=== PATIENT | male | born 2000 | race Caucasian/White ===

== ENCOUNTER 2021-10-14 18:45 | Emergency (ER) | payer OTHER ==
[2021-10-14] MEDS ORDERED: SODIUM CHLORIDE 0.9% 1,000 ML IV STA (19:11)
[2021-10-14 19:35] LABS: BASOPHILS % (AUTO) 0.3 %; EOSINOPHILS % (AUTO) 0.1 %; HCT - HEMATOCRIT 43.1 % (42.0-52.0); HGB - HEMOGLOBIN 15.7 g/dL (14.0-18.0); LYMPHOCYTES # (AUTO) 1.4 10^3/uL (1.5-3.5); LYMPHOCYTES % (AUTO) 19.9 %; MEAN CORPUSCULAR HEMOGLOBIN 30.5 pg (27.0-31.0); MEAN CORPUSCULAR HGB CONC 36.4 g/dL (32.0-36.0); MEAN CORPUSCULAR VOLUME 83.9 fL (80.0-94.0); MEAN PLATELET VOLUME 8.6 fL (7.4-11.4); MONOCYTES # (AUTO) 0.4 10^3/uL (0.0-1.0); MONOCYTES % (AUTO) 5.6 %; NEUTROPHILS # (AUTO) 5.2 10^3/uL (1.5-6.6); NEUTROPHILS % (AUTO) 73.8 %; PLT - PLATELET COUNT 293 10^3/uL (130-450); RED BLOOD COUNT 5.14 10^6/uL (4.70-6.10); RED CELL DISTRIBUTION WIDTH 11.9 % (12.0-15.0); WHITE BLOOD COUNT 7.1 x10^3/uL (4.8-10.8)
--- NOTE | 2021-10-14 19:35 | ED Physician Documentation ---
History of Present Illness - Stated complaint Stated Complaint: DIZZINESS,LOW HR - Chief complaint Chief Complaint: Neuro - Additonal information Additional information: 21-year-old male presents emergency department for evaluation of nausea, feeling fatigued and having some chest pain and discomfort. Reports symptoms began yesterday evening. He had abdominal cramping and thought that he was going to use the restroom or have watery bowel movement but he did not. When he was exiting the restroom he felt nauseated and checked his heart rate which was 54 which she reports is being low for him. No syncope. Since then he has had some vague chest discomfort. Denies that it is pressure-like. Does not radiate. No recent fevers. [place]. Reports COVID-19 vaccine is up-to-date. Denies tobacco or alcohol use. Takes no prescribed medications. Review of Systems Constitutional: reports: Fatigue. denies: Fever Eyes: reports: Reviewed and negative Throat: reports: Reviewed and negative Cardiac: reports: Chest pain / pressure. denies: Palpitations, Pedal edema, Calf pain Respiratory: denies: Dyspnea, Cough GI: reports: Abdominal Pain, Nausea. denies: Constipation, Diarrhea, Hematemesis : reports: Reviewed and negative Skin: reports: Reviewed and negative Musculoskeletal: reports: Reviewed and negative PD PAST MEDICAL HISTORY - Present Medications Home Medications: Ambulatory Orders Medication Instructions Recorded Confirmed No Known Home Medications 10/14/21 10/14/21 - Allergies Allergies/Adverse Reactions: Allergies Allergy/AdvReac Type Severity Reaction Status Date / Time gluten Allergy Unknown Verified 10/14/21 18:54 PD ED PE NORMAL - General General: Alert and oriented X 3, No acute distress - HEENT HEENT: PERRL - Neck Neck: Supple, no meningeal sign, No adenopathy - Cardiac Cardiac: RRR, No murmur, No gallop - Respiratory Respiratory: No respiratory distress, Clear bilaterally - Abdomen Abdomen: Normal bowel sounds, Soft, Non tender - Derm Derm: Normal color, Warm and dry, No rash - Extremities Extremities: No deformity, No tenderness to palpate, Normal ROM s pain Results - Vitals Vitals: Vital Signs - 24 hr 10/14/21 10/14/21 18:55 19:33 Temperature 37.2 C Heart Rate 93 80 Respiratory 19 20 Rate Blood Pressure 131/94 H 128/84 H O2 Saturation 99 100 Oxygen O2 Source Room air - EKG (time done) 1853 Rate: Rate (enter#) (84) Rhythm: NSR [place]: Normal Intervals: Normal OR QRS: Normal Ischemia: Normal ST segments Compare to prior EKG: Old EKG unavailable Computer interpretation: Agree with computer - Labs Labs: Laboratory Tests 10/14/21 10/14/21 10/14/21 19:27 19:27 19:27 WBC 7.1 RBC 5.14 Hgb 15.7 Hct 43.1 MCV 83.9 MCH 30.5 MCHC 36.4 H RDW 11.9 L Plt Count 293 MPV 8.6 Neut # (Auto) 5.2 Lymph # (Auto) 1.4 L [place] # (Auto) 0.4 Eos # (Auto) 0.0 Baso # (Auto) 0.0 Absolute Nucleated RBC 0.00 Nucleated RBC % 0.0 Sodium 137 Potassium 3.6 Chloride 101 Carbon Dioxide 26 Anion Gap 10.0 BUN 10 Creatinine 0.9 Estimated GFR (MDRD) 105 Glucose 97 Calcium 9.1 Total Bilirubin 1.5 H AST 17 ALT 28 Alkaline Phosphatase 62 Troponin I High Sens < 2.3 L Total Protein 8.0 Albumin 4.5 Globulin 3.5 Albumin/Globulin Ratio 1.3 Lipase 26 - Rads (name of study) cxr Radiology: Final report received (no acute cardiopulmonary process) PD MEDICAL DECISION MAKING - ED course Complexity details: reviewed results, re-evaluated patient, considered differential, d/w patient ED course: 21-year-old male presents emergency department for evaluation of 24 hours of nausea, abdominal cramping feeling lightheaded and concerned that he had a low heart rate. No syncope. On exam no abdominal tenderness was elicited. Cardiopulmonary auscultation was unremarkable. No hypoxia. He is PERC negative. EKG is nonischemic. High- sensitivity troponin negative. Given lack of abdominal tenderness and unremarkable screening labs including a troponin we did defer advanced CT imaging. Patient was given Zofran and IV fluids here in the emergency department with marked resolution of symptoms. We will send the patient home with a prepack for Zofran. Emergent worrisome return precautions otherwise discussed. Departure - Departure Disposition: Home, Self Care Clinical Impression: Nausea, Light-headed feeling Condition: Stable Record reviewed to determine appropriate education?: Yes Comments: Brent pope were seen today in the emergency department for nausea, chest discomfort and feeling lightheaded. Your symptoms began last night. At that time you had some abdominal cramping and I suspect that you likely have a mild virus that may have caused the cramping and nausea. However your screening labs today are essentially normal. Your chest x-ray and EKG are normal. You are not showing signs of having a heart attack, a stroke or a blood clot in your lungs. We have prescribed you some Zofran to take home with you. This is a tablet that you can take under your tongue every 6-8 hours. I recommend frequent sips of small liquids. In general with what I think is a mild viral illness I would expect you to be feeling better over the next 48 to 72 hours. If at any point you have fevers higher than 102, severe abdominal pain, uncontrolled vomiting or any fainting episodes or severe shortness of breath and please return immediately to the ER for second evaluation.
[2021-10-14 19:38] VITALS: BP 128/84
[2021-10-14 19:46] LABS: ALBUMIN 4.5 g/dL (3.2-5.5); ALBUMIN/GLOBULIN RATIO 1.3 (1.0-2.2); BILIRUBIN,TOTAL 1.5 mg/dL (0.2-1.0); CALCIUM 9.1 mg/dL (8.5-10.3); CREATININE 0.9 mg/dL (0.6-1.2); POTASSIUM 3.6 mmol/L (3.5-5.0)
[2021-10-14] MEDS ORDERED: ONDANSETRON 4 MG/2 ML VIAL IVP STA (19:51)
[2021-10-14] MEDS ORDERED: ONDANSETRON ODT 4 MG Prepack 2 TL PRN (20:13)
--- NOTE | 2021-10-14 20:17 | XRAY Report ---
PROCEDURE: Chest 1 View X-Ray INDICATIONS: Chest Pain TECHNIQUE: One view of the chest was acquired. COMPARISON: None. FINDINGS: Surgical changes and devices: None. Lungs and pleura: No pleural effusions or pneumothorax. Lungs are clear. Mediastinum: Mediastinal contours appear normal. Heart size is normal. Bones and chest wall: No suspicious bony lesions. Overlying soft tissues appear unremarkable. IMPRESSION: No acute cardiopulmonary abnormality. Reviewed by: Ethan Solano MD on 10/14/2021 8:16 PM [facility] Approved by: Ethan Solano MD on 10/14/2021 8:16 PM [facility] Station ID: [id number]
== END 2021-10-14 20:27 | disposition home or self-care (01) ==
LOC: ED 18:45
DX: R42 Dizziness and giddiness (principal); R11.0 Nausea
CPT/HCPCS: 36415; 80053; 83690; 84484; 85025; 93005; 96374; 99283

== ENCOUNTER 2021-11-25 14:19 | Outpatient (CLI) | payer OTHER ==
[2021-11-25 15:19] VITALS: BP 126/73
--- NOTE | 2021-11-25 15:19 | SLEEP CARE CONSULTATION ---
Information from patient questionnaire entered by Romel Delaney MA. I have reviewed and concur with the information entered by Romel Delaney MA. This document represents the service I personally performed and the decisions made by me, Fariha Hall ARNP. History of Present Illness Service Date and Time: 11/25/2021 1419 Reason for Visit: New patient Accompanied by: Father Chief Complaint: reports: Unrefreshed sleep, Excessive daytime sleepiness, Observed pauses in breathing, Fatigue, Frequent awakenings at night Date of Onset: LAST 2 YEARS Usual bedtime: 12 MIDNIGHT TO 4 AM Time it takes to fall asleep: OVER 2 HOURS Snores at night: No Observed to quit breathing while asleep: No Number of times waking at night: 3 -5 TIMES Reasons for waking at night: reports: Choking, Gasping for air, Pain Toss, Turn, or Twitch while sleeping: Yes Recalls having dreams: Yes Usually gets out of bed at: 1030 - 200 Feels refreshed in the morning: No Morning headache: Yes (5 days weekly; last 30 mins or so) Sleepy or fatigued during the day: Yes Ever fallen asleep while driving: No Takes day naps: No Dreams during day naps: No Prior sleep studies: No Year and Where: [place] Type of Sleep Study: Home sleep study Additional HPI information: I had the pleasure of seeing MARYSOL MATTHEW today regarding the possibility of him having a sleep disorder. His current complaints are unrefreshed sleep, observed pauses in breathing, excessive daytime sleepiness, fatigue and frequent night awakenings. He was living in [place] and having 3-5 times he would wake up feeling short of breath. Since moving to [place] these incidences are about 1-3 times a night. He states he has not been told that he snores and his father who accompanied him voiced agreement. He states he did complete 2 home studies in [place]. The first one there was a problem with so he repeated it. He states after the second test he was told to avoid sleeping on his back and to only sleep on his side. He was not started on any other therapy at that time. He feels his nightly gasping for air has worsened since his last sleep study. He has gained about 24 pounds over the last 5 years. He does have a history of asthma that he states is well controlled. He rarely has to use his rescue albuterol inhaler and he has had no exacerbations in at least 10 years. - Parasomnia Symptoms Ever been unable to move upon waking from sleep: No Walks in sleep: No Talks in sleep: No Ever acted out dreams in sleep: No Ever felt weak in the knees when startled or emotional: No Bothered by creepy, crawly, restless sensations in legs: Yes (when laying down, tingling sensations) Problems with memory or concentration: Yes (will lose train of thought; hard to remember simple things) Subjective Initial [place] Sleepiness Scale score: 7 (11/2021) Past Medical History Past Medical History: reports: Anxiety, Asthma, Depression Social History The patient's occupation is a [employer]. Patient is Single and lives in . Have you smoked in the past 12 months: No Alcohol use: No Caffeine use: No Family History Family history of sleep disordered breathing: Yes Family Hx Sleep Apnea: Mother: Sleep apnea - Treated, Father: Snoring Allergies and Home Medications Drug allergies reviewed: Yes (NKDA) Home medication list reviewed: Yes Allergy and home medication list: Allergies gluten Allergy (Verified 10/14/21 18:54) Unknown Medications: Omeprazole Fluoxetine, just started yesterday Zyrtec Albuterol inhaler, prn Review of Systems Weight gain over past 5 years: 24 lb Cardiovascular: denies: high blood pressure Respiratory: reports: shortness of breath Gastrointestinal: reports: heartburn, nausea, abdominal pain Neurological: reports: headaches Psychiatric: reports: anxiety, depression Ear/Nose/Throat: reports: nasal congestion, sinus problems, wisdom teeth removed. denies: tonsillectomy Endocrine: reports: sluggishness Musculoskeletal: reports: joint pain Physical Exam Vital signs obtained and entered by: Jared DELANEY CMA AAMA Blood Pressure: 126/73 (RIGHT, PULSE 72, RESP 18, ) Cuff size: wrist Heart Rate: 72 O2 Saturation: 96 (PAPER) Height: 5 ft 8 in Weight: 204 lb (WITH CLOTHES) Body Mass Index: 31.0 BMI Classification: Obese Neck circumference: 17 (INCHES) Mouth and throat: narrow oropharynx Soft palate: long Hard palate: normal Uvula: normal Uvula visualization: 25% Mallampati Class III Tongue: enlarged in size with teeth lemus on lateral edges Tonsils: 2+ Neck: normal w/o lymphadenopathy or thyromegaly Heart: regular rate and rhythm Lungs: clear bilaterally Impression and Plan 1. Suspected Obstructive Sleep Apnea-Hypopnea Syndrome, as suggested by a history of observed cessation of breath while asleep, gasping or choking in sleep, morning headache, frequent awakening during the night, unrefreshed sleep, cognitive impairment, and excessive daytime sleepiness. Narrow oropharynx and obesity are common predisposing factors for obstructive sleep apnea-hypopnea syndrome. I recommend proceeding to polysomnography to confirm the diagnosis and to assess severity. If the patient has significant sleep disordered breathing, a manual CPAP titration study will also be performed to find the optimal treatment pressure. I informed the patient of what the sleep studies involve and after some discussion, obtained agreement to proceed. The pathophysiology of obstructive sleep apnea-hypopnea syndrome was discussed with the patient and health risks of cardiovascular and cerebrovascular disease if not treated. Risks of drowsy driving discussed in detail and patient advised to avoid long distance driving and to black puller at the first sign of drowsiness. Patient agreed to plan. * Schedule polysomnography. * Attempt to lose weight. * Review instructions provided by trained office staff on how to prepare for the sleep study. * Return for follow-up after sleep study completed. Counseling Topics: Weight loss health impact Visit Type: In Office Other Participants: Other (Father) Time Spent with Patient (minutes): 40 Provider Statement: I spent 100% of the Face to Face Visit with the patient with greater than 50% spent counseling the patient and coordination of care.
== END 2021-11-25 14:20 | disposition home or self-care (01) ==
LOC: SC 14:19
PROVIDERS: ATTEND Nurse Practitioner Family
DX: G47.10 Hypersomnia, unspecified (principal); R06.81 Apnea, not elsewhere classified; G47.8 Other sleep disorders; R51.9 Headache, unspecified; R41.9 Unspecified symptoms and signs involving cognitive functions and awareness; E66.9 Obesity, unspecified; Z68.31 Body mass index [BMI] 31.0-31.9, adult
CPT/HCPCS: 99203; 99212

== ENCOUNTER 2022-01-19 10:26 | Outpatient (CLI) | payer OTHER ==
--- NOTE | 2022-01-19 10:53 | SLEEP CARE CONSULTATION ---
Information from patient questionnaire entered by Romel Christine MA. I have reviewed and concur with the information entered by Romel Christine MA. This document represents the service I personally performed and the decisions made by , Fariha Hall ARNP. History of Present Illness Service Date and Time: 01/19/2022 1026 Accompanied by: Father Initial [place] Sleepiness Scale score: 7 (11/2021) Current [place] Sleepiness Scale score: 7 (01/19/2022) Additional HPI information: MARYSOL MATTHEW returns for follow up and results of the recently performed home sleep study. I explained the pathophysiology behind obstructive sleep apnea. We then spent quite a bit of time discussing different treatment options. For mild obstructive sleep apnea, surgery and oral appliance are alternatives to nasal CPAP therapy but in moderate or severe cases, nasal CPAP is the most effective and reliable treatment. I reviewed the impact of weight changes on sleep apnea and strongly recommended losing weight. I explained how CPAP machine works and what to expect when using the machine. Patient counseled not drink alcohol less than 4 hours before bedtime as it can increase snoring and apnea. Patient was cautioned about risks of drowsy driving until sleepiness symptoms resolve. Sleep Study - Results Type of Sleep Study: Home sleep study (F/U HOME STUDY, 12/31/2021 [facility], POS) Prior sleep studies: No Year and Where: [place] Polysomnography/Home Sleep Study results: Physician Impression: The quality of the study is good. The length of the study is not optimal (< 240 minutes). Please also see the tabulated and graphic data. 1. Obstructive Sleep Apnea-Hypopnea (ICD-10 G47.33), mild, with an AHI of 14.7/hr and celina SaO2 of 88%. During the study, the patient had 19 apneas (19 obstructive, 0 central, 0 mixed) and 17 hypopneas. The longest episode lasted 135.5 seconds. The respiratory events occurred more frequently during supine sleep (supine AHI was 13.0 and non-supine, 31.82). 2. Hypoxemia (ICD-10 R09.02), minimal, with the lowest oxygen saturation of 88 % and 0.5 minutes with SaO2 under 90%. Baseline oxygen saturation was normal (Average oxygen saturation was 94%). Allergies and Home Medications Home medication list reviewed: Yes (no changes) Allergy and home medication list: Allergies gluten Allergy (Verified 10/14/21 18:54) Unknown Review of Systems Review of systems same as previous: Yes (no changes) Physical Exam Vital signs obtained and entered by: JESSI ALVARENGA Blood Pressure: 110/83 (PULSE 63, RESP 18, RIGHT) Cuff size: wrist Heart Rate: 63 O2 Saturation: 98 (PAPER MASK) Height: 5 ft 8 in Weight: 190 lb Body Mass Index: 28.8 BMI Classification: Overweight Impression and Plan 1. Obstructive Sleep Apnea-Hypopnea Syndrome, mild, with lowest oxygen saturation of 88%. Obviously this is the cause of the patients symptoms of unrefreshed sleep, and excessive daytime sleepiness. Positive pressure therapy could benefit asthma, anxiety and depression. The patient chose an oral appliance to treat their apnea. A 3 month follow up will be made to see if appliance has reduced symptoms. If so, another polysomnography will be ordered with use of the oral appliance to check efficacy in reducing apnea. * Oral appliance * Attempt to lose weight. * Avoid alcohol consumption near bedtime. * The patient is again cautioned about driving until sleepiness completely resolves. * Return one month after oral appliance obtained. I will assess response to therapy and compliance at that time. Counseling Topics: Weight loss health impact Visit Type: In Office Other Participants: Other (Father) Time Spent with Patient (minutes): 22 Provider Statement: I spent 100% of the Face to Face Visit with the patient with greater than 50% spent counseling the patient and coordination of care.
[2022-01-19 10:57] VITALS: BP 110/83
== END 2022-01-19 10:27 | disposition home or self-care (01) ==
LOC: SC 10:26
PROVIDERS: ATTEND Nurse Practitioner Family
DX: G47.33 Obstructive sleep apnea (adult) (pediatric) (principal); E66.3 Overweight; Z68.28 Body mass index [BMI] 28.0-28.9, adult
CPT/HCPCS: 99212; 99213